=== PATIENT | female | born 1960 | race Caucasian/White ===

== ENCOUNTER 2021-10-30 10:11 | Outpatient (CLI) | payer OTHER, SELFPAY ==
--- NOTE | 2021-10-30 10:19 | MM_ITS ---
WS: [email or web address] SCREENING DIGITAL BREAST TOMOSYNTHESIS MAMMOGRAM WITH CAD HISTORY: SCREENING COMPARISON: 04/07/2019, 01/03/2016 Bilateral CC and MLO with tomosynthesis and synthetic mammography submitted. Computer aided detection analyzed. Breast composition: There are scattered areas of fibroglandular density. 2 adjacent well-circumscribe d masses in the LEFT breast along the 9:00 axis. These masses measure each approximately 6 mm. Masses are within a middle to posterior depth. MM/[place] [id number] IMPRESSION: BI-RADS: 0-Incomplete: Need additional imaging evaluation FOLLOW UP: Need Additional Imaging Recommendation: LEFT breast ultrasound directed medial breast from 8-10 o'clock . Evaluating for 2 adjacent masses which could very well be cysts.
== END 2021-10-30 10:12 | disposition home or self-care (01) ==
PROVIDERS: Visit Provider Nurse Practitioner Family
DX: Z12.31 Encounter for screening mammogram for malignant neoplasm of breast (principal)
CPT/HCPCS: 77063; 77067

== ENCOUNTER 2021-11-24 08:33 | Outpatient (CLI) | payer OTHER, SELFPAY ==
--- NOTE | 2021-11-24 08:48 | US_ITS ---
WS: [email or web address] ULTRASOUND LEFT BREAST HISTORY: ABNORMAL MAMMO COMPARISON: 04/07/2019, 10/30/2021, 04/07/2019 TECHNIQUE: 2-D and Doppler. Ultrasound directed to the 9:00 axis of the LEFT breast demonstrates an ovoid hypoechoic nodule measu ring 6 x 4 x 6 mm. Due to its posterior position this is difficult to classify completely as a simple cyst. I do believe this is probably a small cyst. Only one mass is identified today. Favor these are probably benign. As both areas seen in the LEFT breast are not visualized recommend short-term follo w-up. US/US breast LT limited* [id number] IMPRESSION: BI-RADS: 3-Probably Benign FOLLOW-UP: 6 Month Follow-up Diagnostic LEFT mammogram in 6 months and possible LEFT breast ultrasound follo w-up.
== END 2021-11-24 08:34 | disposition home or self-care (01) ==
LOC: RAD 08:34
PROVIDERS: Visit Provider Nurse Practitioner Family
DX: R92.8 Other abnormal and inconclusive findings on diagnostic imaging of breast (principal)
CPT/HCPCS: 76642

== ENCOUNTER 2022-05-20 10:15 | Outpatient (CLI) | payer OTHER, SELFPAY ==
--- NOTE | 2022-05-20 11:01 | US_ITS ---
WS: [email or web address] DIAGNOSTIC LEFT DIGITAL TOMOSYNTHESIS MAMMOGRAPHY WITH CAD. LEFT breast ultrasound, limited HISTORY: 6 month follow-up indeterminate masses LEFT breast. COMPARISON: 11/24/2021, 10/30/2021, 04/07/2019 Technique: CC, MLO and ML views. Spot compression LEFT CC and MLO. Breast composition: There are scattered areas of fibroglandular density. Subcentimeter masses persis t in the medial LEFT breast near the 9:00 axis. The largest measures 6.8 mm. These masses are at a mi ddle depth. Ultrasound to follow. LEFT breast ultrasound: Only a single cyst is identified today. This cyst measures 7 x 6 x 4 mm at 9:00, 2 cm from the nippl e. No increase in size. The smaller nodule is not identified. Could potentially be a lymph node which is isoechoic to the adjacent soft tissue. US/US breast LT limited* [id number] IMPRESSION: BI-RADS: 3-Probably Benign FOLLOW UP: 6 Month Follow-up Patient to return for annual mammogram in October 2022. Recommend diagnostic imagin g of the LEFT breast to ensure continued stability. Ultrasound evaluation nanetteul d be performed also.
--- NOTE | 2022-05-20 11:49 | MM_ITS ---
WS: [email or web address] DIAGNOSTIC LEFT DIGITAL TOMOSYNTHESIS MAMMOGRAPHY WITH CAD. LEFT breast ultrasound, limited HISTORY: 6 month follow-up indeterminate masses LEFT breast. COMPARISON: 11/24/2021, 10/30/2021, 04/07/2019 Technique: CC, MLO and ML views. Spot compression LEFT CC and MLO. Breast composition: There are scattered areas of fibroglandular density. Subcentimeter masses persis t in the medial LEFT breast near the 9:00 axis. The largest measures 6.8 mm. These masses are at a mi ddle depth. Ultrasound to follow. LEFT breast ultrasound: Only a single cyst is identified today. This cyst measures 7 x 6 x 4 mm at 9:00, 2 cm from the nippl e. No increase in size. The smaller nodule is not identified. Could potentially be a lymph node which is isoechoic to the adjacent soft tissue. MM/[place] [id number] IMPRESSION: BI-RADS: 3-Probably Benign FOLLOW UP: 6 Month Follow-up Patient to return for annual mammogram in October 2022. Recommend diagnostic imagin g of the LEFT breast to ensure continued stability. Ultrasound evaluation sarwat d be performed also.
== END 2022-05-20 10:16 | disposition home or self-care (01) ==
PROVIDERS: PCP Nurse Practitioner Family; Visit Provider Nurse Practitioner Family
DX: N63.25 Unspecified lump in the left breast, overlapping quadrants (principal); N60.02 Solitary cyst of left breast
CPT/HCPCS: 76642; 77061; G0279

== ENCOUNTER 2022-07-21 13:39 | Outpatient (CLI) | payer OTHER, SELFPAY ==
--- NOTE | 2022-07-21 13:45 | US_ITS ---
WS: [email or web address] ULTRASOUND THYROID TECHNIQUE: Ultrasound of the thyroid. CLINICAL INFORMATION: thyroid nodule COMPARISON: December 02, 2021 FINDINGS: Thyroid: Diffusely heterogeneous thyroid echotexture bilaterally. Previously described increased vasc ularity has a more normal appearance today. Heterogeneous echotexture is unchanged. Dominant hypoechoic RIGHT mid thyroid nodule measuring 6.3 x 3.5 x 11.0 mm appears stable compared to previous Right thyroid lobe: 4.6 cm x 1.5 cm x 1.2 cm Left thyroid lobe: 4.2 cm x 1.6 cm x 1.0 cm. Isthmus: 0.2 mm. Cervical lymphadenopathy: None. US/US thyroid [id number] IMPRESSION: 1. Diffuse heterogeneous thyroid echotexture with more normal-appearing vascul arity today. Recommend correlation with thyroid function studies and consider H ashimoto's thyroiditis 2. Hypoechoic nodule mid RIGHT thyroid measuring 6.3 x 3.5 x 11.0 mm appears stable compared to previous. 3. Recommend continued surveillance with 1-2 year follow-up. 4. No other significant changes.
== END 2022-07-21 13:40 | disposition home or self-care (01) ==
LOC: RAD 13:40
PROVIDERS: PCP Nurse Practitioner Family; Visit Provider Internal Medicine
DX: E04.1 Nontoxic single thyroid nodule (principal)
CPT/HCPCS: 76536

== ENCOUNTER 2022-11-02 10:43 | Outpatient (CLI) | payer OTHER, SELFPAY ==
--- NOTE | 2022-11-02 10:57 | MM_ITS ---
WS: [email or web address] DIAGNOSTIC BILATERAL DIGITAL BREAST TOMOSYNTHESIS MAMMOGRAPHY WITH CAD LEFT breast ultrasound, limited. HISTORY: Six-month follow-up masses LEFT breast. COMPARISON: 05/20/2022, 10/30/2021 and 04/07/2019 TECHNIQUE: Bilateral craniocaudad, mediolateral oblique, and mediolateral views are submitted with to mosynthesis and SM. Spot compression views LEFT CC and MLO. Computer aided detection utilized. Breast composition: There are scattered areas of fibroglandular density. Reidentified are 2 adjacent masses within the medial LEFT breast at a middle depth with the largest measuring 7 mm. The smaller m ass is adjacent and just medial to the 7 mm mass. LEFT breast ultrasound, limited. LEFT breast 9:00 again noted is a hypoechoic nodule measuring 7 x 6 x 4 mm at 9:00, 2 cm from the nip ple. No additional nodule and no interval growth of the visualized nodule. There is an adjacent asymmetry which may be the additional very vague nodule seen on mammography. MM/[place] [id number] IMPRESSION: BI-RADS: 3-Probably Benign FOLLOW UP: 1 Year Follow-up Recommend diagnostic mammogram in 12 months along with follow-up LEFT breast ul trasound.
== END 2022-11-02 10:44 | disposition home or self-care (01) ==
LOC: RAD 10:45
PROVIDERS: PCP Nurse Practitioner Family; Visit Provider Nurse Practitioner Family
DX: N63.25 Unspecified lump in the left breast, overlapping quadrants (principal)
CPT/HCPCS: 76642; 77062; G0279

== ENCOUNTER 2022-11-15 15:56 | Emergency (ER) | payer OTHER, SELFPAY ==
[2022-11-15 16:29] VITALS: BP 144/81; PULSE 77; RESP 14; TEMP 36.8; O2SAT 98; BMI 29.3
--- NOTE | 2022-11-15 17:12 | ED_ITS ---
HPI - Extremity Problem General: Chief complaint: Extremity Injury, Lower Stated complaint: poss. broken ankle Time Seen by Provider: 11/15/22 17:13 History of Present Illness: This 62-year-old female presents to the ER for evaluation of left ankle injury. He was cleaning the toilet so he took off the lid of the toilet tank and sat it on top of the bathtub. When she turned around, the lid fell off and hit her directly on the left ankle. She is not sure if the lid slid off or if she knocked it off. The left lateral malleolus is swollen and she has difficulty putting weight on the leg because of pain. She denies any other injuries. She presents to the ER for evaluation. Associated symptoms: Deny chest pain Review of Systems Const: Denies: chills, body aches or change in appetite Eyes: Denies: change in vision or eye discharge ENMT: Denies: throat pain or dental pain Card: Denies: chest pain or lightheadedness GI: Denies: diarrhea : Denies: dysuria Musc: Reports: extremity swelling (Left lateral malleolus), joint pain (Left ankle) and limited range of motion (Left ankle) Neuro: Denies: headache(s) or weakness in extremities Psych: Denies: depression Jason/Lymph: Denies: easy bruising All/Imm: Denies: urticaria, tongue swelling or facial swelling PFSH ED PFSH: Medical History No pertinent past medical history Surgical History No pertinent past surgical history Social History Smoking and tobacco status: never smoked Course Vital Signs: Vital signs: Vital Signs Temperature 98.3 F 11/15/22 16:29 Pulse Rate 66 11/15/22 17:53 Respiratory Rate 18 11/15/22 17:53 Blood Pressure 148/86 11/15/22 17:53 Pulse Oximetry 98 11/15/22 17:53 Oxygen Delivery Me thod Room Air 11/15/22 17:53 MDM - Extremity (Nontraumatic) Medical Decision Making Medical decision making: Patient presents for evaluation of left ankle injury that occurred shortly prior to presentation. X-rays was suspicious for possible fracture and and so CT of the ankle was done. It is negative for fracture/dislocation. Patient will be treated symptomatically. She declined pain medications. Because she cannot bear weight on that foot, a pair of crutches were provided. Patient was advised to follow- up with her primary care physician. Reasons to return were discussed. Lab Data Radiology Impressions Ankle X-Ray 11/15/22 17:17 IMPRESSION: Findings inconclusive for hairline fracture distal fibula inconclusive for hairline fracture which could be clarified on CT exam if clinically warranted.. Ankle CT 11/15/22 18:30 IMPRESSION: 1. No fracture identified. 2. Subcutaneous soft tissue edema and hemorrhage in the anterior and lateral ankle. Discharge Plan Discharge Patient Disposition: Home Clinical Impression: Contusion of ankle, left Condition: Stable Prescriptions: No Action levothyroxine 25 mcg tablet 25 mcg PO DAILY Qty: 120 3RF Rx Instructions: 1 tab wednesday till wednesday, 2 tabs on wednesday and wednesday Discharge Orders: Discharge ED (Routine); Ordered 11/15/22 Ordered By: Joan Cavazos Referrals: Laura Pena FNP [Primary Care Provider] - Discharge Diet: Usual diet Discharge Activity: Use walker/crutches as instructed Patient Instructions: Opioid Safety, Pain Management Activity Restrictions/Additional Instructions: Utilize the walker provided and start weightbearing as tolerated. Take [id number] Tylenol or Motrin as needed for pain. Ice and elevate the leg. Follow-up with your primary care physician in a week for reevaluation. Return if you develop any new or concerning symptoms. Coding Level of Care Code ED Lathe Operator Contact Lens for Keshia Brock
--- NOTE | 2022-11-15 17:17 | XRR_ITS ---
PROCEDURE INFORMATION: Exam: XR Left Ankle Exam date and time: 11/15/2022 5:39 PM Age: 62 years old Clinical indication: Injury or trauma; Fall; Swelling (edema); Ankle; Left TECHNIQUE: Imaging protocol: Radiologic exam of the left ankle. Views: 3 or more views. COMPARISON: No relevant prior studies available. FINDINGS: Bones/joints: See Soft tissues finding. Soft tissues: Soft tissue swelling adjacent to the distal fibula. Subtle indistinct linear lucency oriented vertically through the distal aspect of the fibula evident only on the oblique view remaining osseous structures are intact. Alignment is preserved. There is a small spur arising the posterior aspect of the calcaneus. XR/XR ankle LT min 3V* [id number] IMPRESSION: Findings inconclusive for hairline fracture distal fibula inconclusive for hairline fracture which could be clarified on CT exam if clinically warranted..
[2022-11-15 17:53] VITALS: BP 148/86; PULSE 66; RESP 18; O2SAT 98
--- NOTE | 2022-11-15 18:30 | CTR_ITS ---
PROCEDURE INFORMATION: Exam: CT Left Lower Extremity Without Contrast, Ankle Exam date and time: 11/15/2022 6:35 PM Age: 62 years old Clinical indication: Injury or trauma; Left; Patient HX: Blunt trauma to lateral side of ankle. Hematoma to region of fibular malleolus. Possible hairline fracture noted on xray. ; Additional info: Suspicious x-ray left ankle. TECHNIQUE: Imaging protocol: CT of the left lower extremity without contrast was performed. Exam focused on the ankle. Radiation optimization: All CT scans at this facility use at least one of these dose optimization techniques: automated exposure control; mA and/or kV adjustment per patient size (includes targeted exams where dose is matched to clinical indication); or iterative reconstruction. REPORTING DATA: Count of CT and Cardiac NM exams in prior 12 months: This patient has received 0 known CTs and 0 known cardiac nuclear medicine studies in the 12 months prior to the current study. COMPARISON: CR (LOW EXM, ) 11/15/2022 5:39 PM RADIATION DOSE METRICS: Total DLP (mGy-cm): 107.79 FINDINGS: Bones/joints: Normal. No acute fracture or dislocation. Soft tissues: Subcutaneous soft tissue edema and hemorrhage in the anterior and lateral ankle. CT/CT ankle LT wo con* [id number] IMPRESSION: 1. No fracture identified. 2. Subcutaneous soft tissue edema and hemorrhage in the anterior and lateral ankle.
== END 2022-11-15 19:59 | disposition home or self-care (01) ==
PROVIDERS: Emergency Provider Family Medicine; PCP Nurse Practitioner Family
DX: S90.02XA Contusion of left ankle, initial encounter (principal); W20.8XXA Other cause of strike by thrown, projected or falling object, initial encounter; Y93.E9 Activity, other interior property and clothing maintenance; Y92.002 Bathroom of unspecified non-institutional (private) residence as the place of occurrence of the external cause
CPT/HCPCS: 73610; 73700; 99284; E0114

== ENCOUNTER 2023-09-08 08:46 | Outpatient (CLI) | payer OTHER, SELFPAY ==
--- NOTE | 2023-09-08 09:00 | US_ITS ---
WS: [email or web address] ULTRASOUND THYROID TECHNIQUE: Ultrasound of the thyroid. CLINICAL INFORMATION: thyroid nodule COMPARISON: 07/21/2022 and 2021 FINDINGS: Thyroid: Right and left thyroid lobes are normal in size. Previously described heterogeneous echotext ure with micronodularity appears improved compared to previous. Normal vascularity today. Right thyroid lobe: 4.5 cm x 1.3 cm x 1.8 cm A few tiny cystic lesions in the RIGHT thyroid compatible with incidental colloid cysts. Left thyroid lobe: 4.4 cm x 1.3 cm x 2.1 cm. Isthmus: 0.3 mm. Cervical lymphadenopathy: None. IMPRESSION: 1. Few tiny cystic nodules RIGHT thyroid likely incidental colloid cysts. 2. No LEFT thyroid lobe nodules 3. No suspicious lesions to target for biopsy. 4. Thyroid echotexture appears less heterogeneous today compared to previous. Normal vascularity. 5. Previously described hypoechoic RIGHT thyroid nodule is not seen today.
== END 2023-09-08 08:47 | disposition home or self-care (01) ==
LOC: RAD 08:46
PROVIDERS: PCP Nurse Practitioner Family; Visit Provider Internal Medicine
DX: E04.1 Nontoxic single thyroid nodule (principal)
CPT/HCPCS: 76536

== ENCOUNTER 2024-01-05 11:46 | Outpatient (CLI) | payer OTHER, SELFPAY ==
--- NOTE | 2024-01-05 11:50 | MM_ITS ---
WS: [email or web address] BILATERAL 3D TOMOSYNTHESIS DIGITAL SCREENING MAMMOGRAPHY WITH CAD CLINICAL INFORMATION: SCREENING HISTORY: Screening mammogram. No current complaints. COMPARISON: 2022 TECHNIQUE: Bilateral CC and MLO views. FINDINGS: Scattered fibroglandular densities bilaterally. Previously described nodular densities medial LEFT br east are unchanged in appearance and middle depth. The largest again measures 7 mm. LEFT breast diagnostic mammography and ultrasound for more accurate evaluation. RIGHT breast is unchanged MM/[place] [id number] IMPRESSION: BI-RADS: 0-Incomplete: Need additional imaging evaluation FOLLOW UP: Need Additional Imaging Recommend LEFT breast diagnostic mammography and ultrasound for comparison to t he prior imaging and for better anatomic detail in regards to the previously de scribed nodules
== END 2024-01-05 11:47 | disposition home or self-care (01) ==
LOC: RAD 11:46
PROVIDERS: PCP Nurse Practitioner Family; Visit Provider Nurse Practitioner Family
DX: Z12.31 Encounter for screening mammogram for malignant neoplasm of breast (principal); R92.323 Mammographic fibroglandular density, bilateral breasts; N63.20 Unspecified lump in the left breast, unspecified quadrant
CPT/HCPCS: 77063; 77067

== ENCOUNTER 2024-02-10 10:24 | Outpatient (CLI) | payer OTHER, SELFPAY ==
--- NOTE | 2024-02-10 10:31 | MM_ITS ---
WS: [email or web address] LEFT 3D TOMOSYNTHESIS DIGITAL MAMMOGRAPHY WITH CAD CLINICAL INFORMATION: ABNORMAL MAMMOGRAM HISTORY: Additional views. 6-month follow-up previously recommended 11/02/2022 COMPARISON: 01/05/2024 and 11/02/2022 TECHNIQUE: 3 views of the left breast were obtained. FINDINGS: Scattered fibroglandular densities of the left breast. Again seen are several nodular densities media l LEFT breast middle depth similar to the prior examination. Ultrasound of this area is pending. ULTRASOUND BREAST LEFT TECHNIQUE: Ultrasound left breast focused area of concern. CLINICAL INFORMATION: ABNORMAL MAMMOGRAM FINDINGS: Ultrasound upper outer quadrant LEFT breast. Indeterminant tiny lesion at the 9 o'clock position 2 cm from the nipple measuring 2 x 2 x 2 mm talle r than wide on some images. This may represent a complex cyst but too small to characterize. Recommen d 6-month follow-up to confirm stability. Remainder of the lesions discussed below have a benign appearance. Tiny cyst at the 9 o'clock position 3 cm from the nipple measuring 5 x 4 mm. Additional tiny lymph node or cyst at the 9 o'clock position 2 cm from the nipple measuring 4 x 2 mm. Additional tiny lymph node in the same position measuring 5 x 2 mm. MM/[place] [id number] IMPRESSION: BI-RADS: 3-Probably Benign FOLLOW UP: 6 Month Follow-up Recommend 6-month follow-up LEFT breast diagnostic mammography and ultrasound w ith attention to the small 2 mm hypoechoic lesion at the 9 o'clock
== END 2024-02-10 10:25 | disposition home or self-care (01) ==
LOC: RAD 10:27
PROVIDERS: PCP Nurse Practitioner Family; Visit Provider Nurse Practitioner Family
DX: R92.8 Other abnormal and inconclusive findings on diagnostic imaging of breast (principal); R92.323 Mammographic fibroglandular density, bilateral breasts; N60.02 Solitary cyst of left breast
CPT/HCPCS: 76642; 77061; G0279

== ENCOUNTER 2024-08-17 08:56 | Outpatient (CLI) | payer OTHER, SELFPAY ==
--- NOTE | 2024-08-17 09:00 | MM_ITS ---
WS: [email or web address] LEFT 3D TOMOSYNTHESIS DIGITAL MAMMOGRAPHY WITH CAD CLINICAL INFORMATION: ABNORMAL MAMMO HISTORY: 6-month follow-up COMPARISON: 02/10/2024 TECHNIQUE: 3 views of the left breast were obtained. FINDINGS: Scattered fibroglandular densities of the left breast. Again seen are several nodular densities inner LEFT breast middle depth similar to the prior examination. Ultrasound of this area is pending. ULTRASOUND BREAST LEFT TECHNIQUE: Ultrasound left breast focused area of concern. CLINICAL INFORMATION: ABNORMAL MAMMO FINDINGS: Ultrasound 9 o'clock position LEFT breast. Again seen is a small hypoechoic lesion 9 o'clock position 2 cm from the nipple. This is similar in appearance compared to 2023 and today measures approximately 2 x 2 x 2 mm unchanged compared to previous. Recommend at least 1 additional 6-month follow-up to c onfirm stability [id number] IMPRESSION: DENSITY: There are scattered areas of fibroglandular density. BI-RADS: 3 - Probably Benign. FOLLOW UP: 6 Month Follow-up Recommend LEFT breast diagnostic mammography and ultrasound in 6 months to conf irm stability of the LEFT breast lesion at the 9 o'clock position 2 cm from the nipple
== END 2024-08-17 08:57 | disposition home or self-care (01) ==
PROVIDERS: PCP Nurse Practitioner Family; Visit Provider Nurse Practitioner Family
DX: R92.8 Other abnormal and inconclusive findings on diagnostic imaging of breast (principal); R92.322 Mammographic fibroglandular density, left breast; N63.25 Unspecified lump in the left breast, overlapping quadrants
CPT/HCPCS: 76642; 77061; G0279

== ENCOUNTER 2025-02-15 10:44 | Outpatient (CLI) | payer OTHER, SELFPAY ==
--- NOTE | 2025-02-15 | MM_ITS ---
WS: [email or web address] LEFT 3D TOMOSYNTHESIS DIGITAL MAMMOGRAPHY WITH CAD CLINICAL INFORMATION: 6 MO FU LT BREAST HISTORY: 6-month follow-up COMPARISON: 08/17/2024, 2023 and 2022 TECHNIQUE: 3 views of the left breast were obtained. FINDINGS: Scattered fibroglandular densities of the left breast. Again seen are several nodular densities in her LEFT breast middle depth similar to the prior examination. Ultrasound described below. No other significant changes. ULTRASOUND BREAST LEFT TECHNIQUE: Ultrasound left breast focused area of concern. FINDINGS: Ultrasound 9 o'clock position LEFT breast. Again seen is a small hypoechoic lesion at 9 o'clock position 2 cm from the nipple. Today this measures approximately 3 x 3 x 2 mm. This is unchanged since the prior studies. Recommend return to annual screening mammography. MM/MM diag LT tomosynthesis [id number] IMPRESSION: DENSITY: There are scattered areas of fibroglandular density. BI-RADS: 2 - Benign. FOLLOW UP: 1 Year Follow-up Recommend return to annual screening mammography.
--- NOTE | 2025-02-15 10:50 | US_ITS ---
WS: [email or web address] LEFT 3D TOMOSYNTHESIS DIGITAL MAMMOGRAPHY WITH CAD CLINICAL INFORMATION: 6 MO FU LT BREAST HISTORY: 6-month follow-up COMPARISON: 08/17/2024, 2023 and 2022 TECHNIQUE: 3 views of the left breast were obtained. FINDINGS: Scattered fibroglandular densities of the left breast. Again seen are several nodular densities in her LEFT breast middle depth similar to the prior examination. Ultrasound described below. No other significant changes. ULTRASOUND BREAST LEFT TECHNIQUE: Ultrasound left breast focused area of concern. FINDINGS: Ultrasound 9 o'clock position LEFT breast. Again seen is a small hypoechoic lesion at 9 o'clock position 2 cm from the nipple. Today this measures approximately 3 x 3 x 2 mm. This is unchanged since the prior studies. Recommend return to annual screening mammography. US/US breast LT limited* [id number] IMPRESSION: DENSITY: There are scattered areas of fibroglandular density. BI-RADS: 2 - Benign. FOLLOW UP: 1 Year Follow-up Recommend return to annual screening mammography.
== END 2025-02-15 10:45 | disposition home or self-care (01) ==
LOC: RAD 10:45
PROVIDERS: PCP Nurse Practitioner Family; Visit Provider Nurse Practitioner Family
DX: R92.8 Other abnormal and inconclusive findings on diagnostic imaging of breast (principal); R92.322 Mammographic fibroglandular density, left breast; N63.25 Unspecified lump in the left breast, overlapping quadrants
CPT/HCPCS: 76642; 77061; G0279